=== PATIENT | female | born 2000 | race Two or more races ===

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

== ENCOUNTER 2023-11-25 09:31 | Emergency (ER) | payer MEDICAID ==
[~2023-11-25] VITALS: Ht 154.9 cm; Wt 70.0 kg
[~2023-11-25 09:31] MED LIST changes: +ETHO250S3; -ETHO250S4
[2023-11-25 11:32] VITALS: BP 128/75; PULSE 71; RESP 16; O2SAT 99
[2023-11-25] MEDS ORDERED: IBUP-1456 PO (11:58)
[2023-11-25 12:04] VITALS: TEMP 97.9
[2023-11-25] MEDS: IBUPROFEN 800 MG TAB PO ONE (12:04)
== END 2023-11-25 12:17 | disposition home or self-care (01) ==
LOC: ER 09:31
DX: S92.425A Nondisplaced fracture of distal phalanx of left great toe, initial encounter for closed fracture (principal); Z79.1 Long term (current) use of non-steroidal anti-inflammatories (NSAID); Z79.899 Other long term (current) drug therapy; W20.8XXA Other cause of strike by thrown, projected or falling object, initial encounter; Y93.89 Activity, other specified; Y92.39 Other specified sports and athletic area as the place of occurrence of the external cause; Y99.8 Other external cause status
CPT/HCPCS: 73630